=== PATIENT | female | born 1965 | race Two or more races ===

== ENCOUNTER 2017-04-03 11:53 | Emergency (ER) | payer SELFPAY ==
[~2017-04-03] VITALS: Ht 170.2 cm; Wt 81.6 kg
[2017-04-03 13:04] VITALS: BP 147/97
== END 2017-04-03 15:00 | disposition home or self-care (01) ==
LOC: ER 11:53
DX: R11.10 Vomiting, unspecified (principal); J02.9 Acute pharyngitis, unspecified

== ENCOUNTER 2019-04-07 13:10 | Emergency (ER) | payer MEDICAID ==
[~2019-04-07] VITALS: Ht 170.2 cm; Wt 90.7 kg
[2019-04-07 14:37] VITALS: BP 156/94
== END 2019-04-07 16:44 | disposition left against medical advice (07) ==
LOC: ER 13:10
DX: M54.5 Low back pain (principal); Z53.21 Procedure and treatment not carried out due to patient leaving prior to being seen by health care provider

== ENCOUNTER 2020-09-16 08:23 | Emergency (ER) | payer MEDICAID, OTHER ==
[~2020-09-16] VITALS: Ht 170.2 cm; Wt 86.2 kg
[2020-09-16 08:45] VITALS: BP 125/77
[2020-09-16] MEDS ORDERED: ONDANSETRON ODT 4 MG TAB PO ONE (09:15)
[2020-09-16] MEDS ORDERED: cefTRIAXone SOD 1,000 MG VL IM ONE (09:15)
[2020-09-16] MEDS ORDERED: LIDOCAINE 1% HCL (LOCAL ANESTH.) INJ 20ML MDV ONE (09:19)
[2020-09-16 09:26] LABS: Urine Bacteria MOD /hpf (None Seen); Urine Blood Negative /uL (Negative); Urine Mucus FEW (None Seen); Urine Specific Gravity 1.032 (1.001-1.035); Urine WBC 44 /hpf (0 - 5)
== END 2020-09-16 10:08 | disposition home or self-care (01) ==
LOC: ER 08:23 → MERGE 08:23 → ER 10:08
DX: N30.00 Acute cystitis without hematuria (principal); R11.2 Nausea with vomiting, unspecified; G43.909 Migraine, unspecified, not intractable, without status migrainosus; I10 Essential (primary) hypertension
CPT/HCPCS: 81001; 81025; 96372; 99283; J0696; J2001; Q0162

== ENCOUNTER 2020-11-22 08:17 | Emergency (ER) | payer MEDICAID ==
[~2020-11-22] VITALS: Ht 170.2 cm; Wt 88.5 kg
[2020-11-22 08:25] VITALS: BP 135/89
== END 2020-11-22 11:46 | disposition home or self-care (01) ==
LOC: MERGE 08:17 → ER 08:17
DX: S86.911A Strain of unspecified muscle(s) and tendon(s) at lower leg level, right leg, initial encounter (principal); Z90.49 Acquired absence of other specified parts of digestive tract; X58.XXXA Exposure to other specified factors, initial encounter; Y93.89 Activity, other specified; Y92.89 Other specified places as the place of occurrence of the external cause; Y99.8 Other external cause status
CPT/HCPCS: 93971